=== PATIENT | male | born 1970 | race Caucasian/White ===

== ENCOUNTER 2021-05-18 07:18 | Emergency (ER) | payer MEDICAID, OTHER ==
[~2021-05-18] VITALS: Ht 175.3 cm; Wt 90.7 kg
[2021-05-18 07:25] VITALS: BP 150/98
--- NOTE | 2021-05-18 08:04 | NUR ---
Pt ambulated to bed 11.
--- NOTE | 2021-05-18 08:06 | NUR ---
51 YEAR OLD MALE COMPLAINS OF LEFT EYE PAIN X LAST NIGHT. PT STATES HE FELT SOMETHING GET INTO EYE AND HAS BEEN ITCHING AND PROGRESSIVELY MORE PAIN SINCE. PT DENIES TRAUMA. PT STATES SEES A "LITTLE BIT BLURRY" AND IRRRITATION WITH MOVEMENT. EYE WITH REDNESS, DENIES PUS. PMH - DENIES ALLERGIES - NKA
[2021-05-18] MEDS ORDERED: TETRACAINE HCL/PF 0.5% OPTH 4 ML BTL OP ONE (08:10)
[2021-05-18] MEDS ORDERED: FLUORESCEIN OPTH STRIP 1 MG OP ONE (08:10)
[2021-05-18] MEDS ORDERED: TOMOMETER 1 DEV DEV MC ONE (08:24)
--- NOTE | 2021-05-18 08:27 | NUR ---
DR HERNANDEZ AT BEDSIDE
[2021-05-18] MEDS ORDERED: TOBDEXOS LEFT EYE (09:11)
--- NOTE | 2021-05-18 09:30 | NUR ---
Patient discharged with v/s stable. Written and verbal after care instructions given and explained. Patient alert, oriented and verbalized understanding of instructions. Ambulatory with steady gait. All questions addressed prior to discharge. ID band removed. Patient advised to follow up with PMD. Rx of TOBRADEX EYE DROPS given. Patient educated on indication of medication including possible reaction and side effects. Opportunity to ask questions provided and answered.
== END 2021-05-18 09:30 | disposition home or self-care (01) ==
LOC: MED 07:18
DX: H10.9 Unspecified conjunctivitis (principal); Z87.448 Personal history of other diseases of urinary system; Z79.2 Long term (current) use of antibiotics
CPT/HCPCS: 99283

== ENCOUNTER 2024-06-17 20:21 | Emergency (ER) | payer OTHER ==
[~2024-06-17] VITALS: Ht 175.3 cm; Wt 101.2 kg
[~2024-06-17 20:21] MED LIST: DEXA5SUS LEFT EYE
[2024-06-17 20:31] VITALS: BP 202/124; PULSE 78; RESP 18; TEMP 98.2; O2SAT 98
[2024-06-17 21:30] LABS: BASOPHILS % (AUTO) 0.2 % (0.0-2.0); EOSINOPHILS # (AUTO) 0.1 K/uL (0-0.4); EOSINOPHILS % (AUTO) 0.6 % (0.0-4.0); HEMATOCRIT 41.3 % (36-52); HEMOGLOBIN 13.9 g/dL (12.0-18.0); LYMPHOCYTES # (AUTO) 1.1 K/uL (2.0-11.5); LYMPHOCYTES % (AUTO) 8.2 % (20.5-51.1); MEAN CORPUSCULAR HEMOGLOBIN 29 pg (27-31); MEAN CORPUSCULAR HGB CONC 34 g/dL (33-37); MEAN CORPUSCULAR VOLUME 86.2 fL (80-94); MONOCYTES # (AUTO) 0.8 K/uL (0.8-1.0); MONOCYTES % (AUTO) 5.9 % (1.7-9.3); NEUTROPHILS # (AUTO) 11.9 K/uL (1.8-7.7); NEUTROPHILS % (AUTO) 85.1 % (42.2-75.2); PLATELET COUNT (AUTO) 277 K/uL (140-450); RED BLOOD CELL COUNT(AUTO) 4.79 MIL/uL (4.20-6.10); RED CELL DISTRIBUTION WIDTH 13.5 % (11.6-13.7); WHITE BLOOD COUNT (AUTO) 13.9 K/uL (4.8-10.8)
[2024-06-17] MEDS: ONDANSETRON 4 MG ODT PO ONE (21:31)
[2024-06-17] MEDS: KETOROLAC 30 MG/ML VIAL IM ONE (21:31)
[2024-06-17 22:31] LABS: APPEARANCE,URINE CLEAR (CLEAR); BILIRUBIN,URINE NEGATIVE (NEGATIVE); BLOOD, URINE 2+ (NEGATIVE); COLOR,URINE YELLOW (YELLOW); LEUKOCYTE ESTERASE ,URINE NEGATIVE (NEGATIVE); NITRITE, URINE NEGATIVE (NEGATIVE); PROTEIN,URINE NEGATIVE (NEGATIVE); UGLUCOSE NEGATIVE (NEGATIVE); UROBILINOGEN,URINE 0.2 EU/dL (0.2 - 1)
[2024-06-17 22:41] LABS: BACTERIA,URINE FEW /HPF (None Seen); MUCUS,URINE 1+ /LPF (None Seen); SQUAMOUS EPITHELIAL CELL,UR 0-3 (FEW) /LPF (0-3 (FEW)); WBC,URINE 0-5 /HPF (0-5)
[2024-06-17 22:53] LABS: ANION GAP 14.6 (8-16); CALCIUM 9.2 mg/dL (8.5-10.1); CARBON DIOXIDE 26.3 mmol/L (21-32); CREATININE 1.3 mg/dL (0.6-1.3); POTASSIUM 3.9 mmol/L (3.5-5.1)
[2024-06-17] MEDS ORDERED: ACET-8905 PO (23:29)
[2024-06-17] MEDS ORDERED: TAMS0.4C96 PO (23:29)
[2024-06-17] MEDS ORDERED: HYDR-5071 PO (23:34)
[2024-06-17 23:37] VITALS: BP 172/100; PULSE 76; RESP 18; TEMP 98.2; O2SAT 98
== END 2024-06-17 23:35 | disposition home or self-care (01) ==
LOC: MED 20:21
DX: N20.0 Calculus of kidney (principal); N13.9 Obstructive and reflux uropathy, unspecified; I10 Essential (primary) hypertension; Z79.899 Other long term (current) drug therapy
CPT/HCPCS: 36415; 74176; 80048; 81001; 85025; 96372; 99285; J1885; Q0162

== ENCOUNTER 2024-07-25 13:26 | Emergency (ER) | payer OTHER ==
[~2024-07-25] VITALS: Ht 175.3 cm; Wt 108.9 kg
[~2024-07-25 13:26] MED LIST changes: +HYDR-5071 PO; +TAMS0.4C96 PO
[2024-07-25 14:06] VITALS: BP 155/99; PULSE 83; RESP 18; TEMP 98.4; O2SAT 94
[2024-07-25] MEDS: IBUPROFEN 600 MG TAB PO ONE (15:20)
[2024-07-25] MEDS ORDERED: NAPR-337 PO (16:07)
[2024-07-25 16:45] VITALS: BP 155/99; PULSE 83; RESP 18; TEMP 98.4; O2SAT 94
== END 2024-07-25 16:43 | disposition home or self-care (01) ==
LOC: MED 13:26
DX: S86.911A Strain of unspecified muscle(s) and tendon(s) at lower leg level, right leg, initial encounter (principal); I12.9 Hypertensive chronic kidney disease with stage 1 through stage 4 chronic kidney disease, or unspecified chronic kidney disease; N18.9 Chronic kidney disease, unspecified; Z79.899 Other long term (current) drug therapy; X58.XXXA Exposure to other specified factors, initial encounter; Y92.89 Other specified places as the place of occurrence of the external cause; Y93.89 Activity, other specified; Y99.8 Other external cause status
CPT/HCPCS: 73562; 99283